=== PATIENT | female | born 1950 | race Caucasian/White ===

== ENCOUNTER → 2017-03-18 | Outpatient (CLI) | payer OTHER | LOC: FIMAGING 09:07 | PROVIDERS: ATTEND Internal Medicine | DX: Z12.31 Encounter for screening mammogram for malignant neoplasm of breast (principal); Z80.3 Family history of malignant neoplasm of breast | CPT/HCPCS: G0202 ==

== ENCOUNTER 2017-03-30 22:16 | Emergency (ER) | payer OTHER ==
[2017-03-30 22:22] VITALS: BP 195/102; PULSE 55; RESP 20; TEMP 97.5; O2SAT 96
--- NOTE | 2017-03-30 22:34 | EDPHY ---
H & P Stated Complaint: varicose veins check up on left - warm leg Time Seen by Provider: 03/30/17 22:27 HPI/ROS: Chief Complaint: Left leg pain HPI: 66-year-old woman with a history of varicose veins noticed this evening that 1 of the veins behind her left calf was firm and tender this evening. She also states that it appeared a little bit red. She is concerned about the possibility of blood clot. She has 2 nephews who had DVTs and PEs in the past. She denies any leg swelling. No shortness of breath. No periods of immobility. No traumatic injuries. She has been tested for blood clotting disorders and has, negative in the past. No fevers or chills. No cough. ROS: 10 point Review of Systems is negative except as noted in the HPI. Social History: No smoking Family History: non-contributory Physical Exam: Gen: Awake, Alert, No Distress HEENT: Nose: no rhinorrhea Eyes: PERRLA, EOMI Mouth: Moist mucosa Neck: Supple, no JVD Ext: no edema, she has a firm and tender varicose vein behind the left calf. There is no erythema. Is not warm to the touch. She has no deep calf pain or swelling. Capillary refills less than 2 seconds. She has 2+ DP pulses. Skin: no rash Neuro: CN II-XII intact, Sensation grossly intact, Strength 5/5 in bilateral upper and lower extremities - Personal History Current Tetanus Diphtheria and Acellular Pertussis (TDAP): Yes - Medical/Surgical History Hx Asthma: No Hx Chronic Respiratory Disease: No Hx Diabetes: No Hx Cardiac Disease: No Hx Renal Disease: No Hx Cirrhosis: No Hx Alcoholism: No Hx HIV/AIDS: No Hx Splenectomy or Spleen Trauma: No - Social History Smoking Status: Never smoked Constitutional: Initial Vital Signs Temperature (C) 36.4 C 03/30/17 22:18 Heart Rate 55 L 03/30/17 22:18 Respiratory Rate 20 03/30/17 22:18 Blood Pressure 195/102 H 03/30/17 22:18 O2 Sat (%) 96 03/30/17 22:18 Allergies/Adverse Reactions: No Known Allergies Allergy (Unverified 03/30/17 22:18) Medical Decision Making - Diagnostics Imaging Results: Duplex ultrasound shows no DVT. There is a clotted varicosity but no clotted vasculature of on the deep tissues. This is per Dr. Carvajal. Imaging: Discussed imaging studies w/ teacher physically impaired Radiologist ED Course/Re-evaluation: Patient has a superficial varicose vein thrombus. No deep vein involvement. I have advised warm compresses, follow up with primary care physician. Departure - Departure Disposition: Home, Routine, Self-Care Clinical Impression: Varicose vein of leg Condition: Good Instructions: Varicose Veins (ED) Additional Instructions: You may apply warm compresses for 15 minutes of every hour every 3-4 hours while awake. Follow up with primary care physician in 3-4 days if symptoms are not improving. Return to the emergency department for increasing redness, warmth, fevers, chills, or any other concerns. Referrals: Lyudmila Cabrera MD [Primary Care Provider] - As per Instructions
== END 2017-03-30 23:37 | disposition home or self-care (01) ==
DX: I83.92 Asymptomatic varicose veins of left lower extremity (principal)

== ENCOUNTER 2017-04-22 20:50 | Inpatient (IN) | payer OTHER ==
[2017-04-22 22:28] LABS: % IMMATURE GRANULYOCYTES 0.3 % (0.0-1.1); ABSOLUTE IMMATURE GRANULOCYTES 0.03 10^3/uL (0.00-0.10); ADD DIFF? NO; ADD MORPH? NO; ADD SCAN? NO; ATYPICAL LYMPHOCYTE FLAG 0 (0-99); FRAGMENT RBC FLAG 0 (0-99); HEMATOCRIT 37.4 % (38.0-47.0); HEMOGLOBIN 12.5 g/dL (12.6-16.3); LEFT SHIFT FLG 0 (0-99); LIPEMIA HEMOLYSIS FLAG 80 (0-99); MEAN CELL HEMOGLOBIN 26.6 pg (27.9-34.1); MEAN CELL HEMOGLOBIN CONCENTR. 33.4 g/dL (32.4-36.7); MEAN CELL VOLUME 79.6 fL (81.5-99.8); MEAN PLATELET VOLUME 10.7 fL (8.7-11.7); PLATELET CLUMPS FLAG 0 (0-99); PLATELET COUNT 165 10^3/uL (150-400); RED CELL DISTRIBUTION WIDTH 13.9 % (11.5-15.2)
--- NOTE | 2017-04-22 22:28 | CPEKG ---
Heart Rate: 92 RR Interval: 652 P-R Interval: 184 QRSD Interval: 94 QT Interval: 372 QTC Interval: 461 P Adamant: 51 QRS Adamant: -6 T Wave Adamant: -12 EKG Severity - BORDERLINE ECG - EKG Impression: SINUS RHYTHM EKG Impression: LOW VOLTAGE THROUGHOUT EKG Impression: BORDERLINE T ABNORMALITIES, DIFFUSE LEADS Electronically Signed By: Herlinda Gibbs 22-Apr-2017 23:10:09
[2017-04-22 22:34] LABS: INR 1.13 (0.83-1.16); PROTIME(PATIENT) 14.4 SEC (12.0-15.0)
[2017-04-22 22:35] LABS: APTT 28.5 SEC (23.0-38.0)
[2017-04-22 22:39] LABS: ANION GAP 13 mEq/L (8-16); CARBON DIOXIDE 21 mEq/l (22-31); CHLORIDE 104 mEq/L (97-110); CREATININE 0.8 mg/dL (0.6-1.0); GLOMERULAR FILTRATION RATE > 60; GLUCOSE 119 mg/dL (70-100); POTASSIUM 3.9 mEq/L (3.5-5.2); SODIUM 138 mEq/L (134-144)
--- NOTE | 2017-04-22 22:49 | EDPHY ---
H & P <Bry Keating Celia - Last Filed: 04/22/17 23:52> Smoking Status: Never smoked <Herlinda Gibbs - Last Filed: 04/23/17 09:52> Time Seen by Provider: 04/22/17 21:25 HPI/ROS: HPI Short of breath. Chest tightness. 66-year-old female by private vehicle with her . This patient reports that she has had upper respiratory infection type symptoms for the last 3 weeks including nasal congestion and cough which she says has been nonproductive. She reports that the symptoms have gotten better. She reports that she flew down to [place] to visit her sister. She returned home at about noon today. When she got up this morning. She felt very fatigued and noticed that she felt short of breath as well. She denies any associated cough or significant nasal congestion at this time. She reports that when she got to the airport was walking to the gauge she had to sit down 5 times to catch her breath. Again no cough and no significant nasal congestion. She describes having tightness and pressure in the middle of her chest but denies chest pain. ROS: Constitutional: No fever, no chills. No weakness. Eyes: No discharge. No changes in vision. ENT: No sore throat. As above. Respiratory: As above. Cardiac: No chest pain, as above, no palpitations. Gastrointestinal: No abdominal pain, no vomiting, no diarrhea. Genitourinary: No hematuria. No dysuria or increased frequency with urination. Musculoskeletal: No back pain. No neck pain. No myalgias or arthralgias. Skin: No rashes. Neurological: No headache. No focal weakness or altered sensation. Past medical history: Surgeries on both feet. Treated for superficial thrombophlebitis recently. Social history: Nonsmoker. No alcohol. Here with her . Physical Exam: General Appearance: Alert, no distress. This patient is responding to questions appropriately and in full sentences. This patient appears well- hydrated and well-nourished. Eyes: Pupils equal and round no pallor or injection. No lid edema, erythema or injection. ENT, Mouth: Mucous membranes are moist. The pharyngeal tissues are unremarkable. No edema or swelling. No asymmetry suggestive of abscess. No erythema or exudates. Respiratory: There are no retractions, lungs are clear to auscultation with good air movement bilaterally. Cardiovascular: Regular rate and rhythm. No murmur. Gastrointestinal: Abdomen is soft and nontender, no masses, bowel sounds normal. No focal tenderness at McBurney's point. No Marin sign. Neurological: Motor sensory function is grossly intact. Cranial nerves are normal. Gait is normal. Skin: Warm and dry, no rashes. Musculoskeletal: Neck is supple and nontender. Extremities are symmetrical. No lower extremity edema. All joints range without pain or impingement. Psychiatric: No agitation. No depression. Database: EKG: EKG time is 10:27 p.m.; EKG shows a narrow complex normal sinus rhythm with a ventricular rate of 92. Low voltage is noted is throughout. The TN, QRS, QT intervals are within normal limits. Borderline T-wave abnormalities diffuse leads. There are no ST-T wave changes indicative of ischemic or injury pattern. No evidence of right heart strain. Interpreted by me. Imaging: Chest x-ray PA and lateral; the cardiac mediastinal silhouette is unremarkable. No evidence of infiltrate or pneumothorax. No acute cardiopulmonary disease process noted. Interpreted by me. Procedures: Emergency department course: IV placed. She was placed on a monitor. Vital signs reviewed. Room air pulse oximetry 89%. She was placed on 2 L of nasal cannula oxygen with pulse oximetries coming up to the mid 90s. Mildly tachycardic in triage. 10:45 p.m., patient re-evaluated, cold roll catcher shows a narrow complex sinus rhythm with ventricular rate of 86. Discussed elevated D-dimer and the significance of this and need for CT angiogram. Patient consents to this study. 10:55 p.m., patient awaiting CT angiogram of chest. Vital signs reviewed and are stable. Care turned over to Dr. Bry Keating at this time. Differential Diagnosis: The differential diagnosis on this patient includes but is not limited to pulmonary embolism, reactive airway disease, congestive heart failure, pericardial effusion, acute coronary syndrome. This represents a partial list of diagnoses considered. These considerations are based on history, physical exam, past history, reassessment and diagnostic testing. (Herlinda Gibbs ) Constitutional: Initial Vital Signs Temperature (C) 36.6 C 04/22/17 20:54 Heart Rate 104 H 04/22/17 20:54 Respiratory Rate 16 04/22/17 20:54 Blood Pressure 106/75 04/22/17 20:54 O2 Sat (%) 93 04/22/17 20:54 O2 Delivery Mode Nasal Cannula O2 (L/minute) 2 Allergies/Adverse Reactions: No Known Allergies Allergy (Verified 04/22/17 20:57) Home Medications: Medication Instructions Recorded C/E/Zn/Cu/OM3/DHA/EPA/LUT/ZEAX 1 each PO DAILY 04/23/17 [Preservision Areds 2 Softgel] Cholecalciferol Vit D3 [Vitamin D3 1,000 units PO DAILY 04/23/17 (*)] Ferrous Sulfate [Ferrous Sulf 325 325 mg PO DAILY 04/23/17 MG (*)] Herbals/Supplements -Info Only 1 ea PO DAILY 04/23/17 Multivitamins [Multivitamin (*)] 1 each PO DAILY 04/23/17 [place]-3 Fatty Acids [Fish Oil 1000 1,000 mg PO DAILY 04/23/17 mg (*)] Medical Decision Making - Diagnostics Imaging: Discussed imaging studies w/ call center support representative Radiologist <Bry Keating - Last Filed: 04/22/17 23:52> <Herlinda Gibbs - Last Filed: 04/23/17 09:52> - Diagnostics Imaging Results: Imaging Impressions Chest X-Ray 04/22/17 21:09 Impression: 1. Lungs are clear. 2. Osteolysis of the distal right clavicle, likely posttraumatic. 3. Mild wedging of multiple mid thoracic vertebrae may represent subtle age- indeterminate compression fractures. Chest/Thorax CTA 04/22/17 22:50 Impression: 1. Extensive pulmonary emboli involving most major branches of the pulmonary arterial tree, right greater than left. 2. Right ventricular enlargement, bowing of the intraventricular septum and reflux of contrast into the hepatic veins suggest right heart strain. 3. Probable developing pulmonary infarct in the right upper lobe. Dr. Gayle discussed these findings by telephone with Bry Keating MD at 23:27. Other Provider: 2300 care assumed by me from Dr. Gibbs pending CT scan of the chest. This is a 66-year-old woman actually I saw on the 1st of this month who had a thrombosed varicose vein but normal ultrasound of her deep veins of her left leg. She is presenting with worsening leg swelling and shortness of breath. CT scan now shows bilateral PEs with some mild prominence of the right ventricle consistent with right heart strain. I have discussed with Dr. Arellano, hospitalist. He will admit to his service for further care. He is in agreement with starting the patient on Lovenox and admitting the PCU. (Bry Keating) - Data Points Laboratory Results: Laboratory Results 04/22/17 22:16 04/22/17 22:16 04/22/17 04/22/17 04/22/17 22:16 22:16 22:16 WBC 10.34 10^3/uL H 10^3/uL (3.80-9.50) RBC 4.70 10^6/uL 10^6/uL (4.18-5.33) Hgb 12.5 g/dL L g/dL (12.6-16.3) Hct 37.4 % L % (38.0-47.0) MCV 79.6 fL L fL (81.5-99.8) MCH 26.6 pg L pg (27.9-34.1) MCHC 33.4 g/dL g/dL (32.4-36.7) RDW 13.9 % % (11.5-15.2) Plt Count 165 10^3/uL 10^3/uL (150-400) MPV 10.7 fL fL (8.7-11.7) Neut % (Auto) 78.4 % H % (39.3-74.2) Lymph % (Auto) 14.5 % L % (15.0-45.0) [place] % (Auto) 5.7 % % (4.5-13.0) Eos % (Auto) 0.8 % % (0.6-7.6) Baso % (Auto) 0.3 % % (0.3-1.7) Nucleat RBC Rel Count 0.0 % % (0.0-0.2) Absolute Neuts (auto) 8.11 10^3/uL H 10^3/uL (1.70-6.50) Absolute Lymphs (auto) 1.50 10^3/uL 10^3/uL (1.00-3.00) Absolute Monos (auto) 0.59 10^3/uL 10^3/uL (0.30-0.80) Absolute Eos (auto) 0.08 10^3/uL 10^3/uL (0.03-0.40) Absolute Basos (auto) 0.03 10^3/uL 10^3/uL (0.02-0.10) Absolute Nucleated RBC 0.00 10^3/uL 10^3/uL (0-0.01) Immature Gran % 0.3 % % (0.0-1.1) Immature Gran # 0.03 10^3/uL 10^3/uL (0.00-0.10) PT 14.4 SEC SEC (12.0-15.0) INR 1.13 (0.83-1.16) APTT 28.5 SEC SEC (23.0-38.0) D-Dimer 9.30 ug/mLFEU H ug/mLFEU (0.00-0.50) Sodium 138 mEq/L mEq/L (134-144) Potassium 3.9 mEq/L mEq/L (3.5-5.2) Chloride 104 mEq/L mEq/L (97-110) Carbon Dioxide 21 mEq/l L mEq/l (22-31) Anion Gap 13 mEq/L mEq/L (8-16) BUN 20 mg/dL mg/dL (7-23) Creatinine 0.8 mg/dL mg/dL (0.6-1.0) Estimated GFR > 60 Glucose 119 mg/dL H mg/dL (70-100) Calcium 9.0 mg/dL mg/dL (8.5-10.4) Troponin I 0.258 ng/mL H ng/mL (0.000-0.034) NT-Pro-B Natriuret Pep 5160 pg/mL H pg/mL (0-125) Medications Given: Rivaroxaban (Xarelto) 15 mg PO BIDMEAL ADELINE Stop: 10/20/17 07:59 Last Admin: 04/23/17 07:41 Dose: 15 mg Discontinued Medications Enoxaparin Sodium (Lovenox) 70 mg SC EDNOW ONE Stop: 04/22/17 23:55 Last Admin: 04/23/17 00:15 Dose: 70 mg Departure <Bry eKating - Last Filed: 04/22/17 23:52> <Herlinda Gibbs - Last Filed: 04/23/17 09:52> - Departure Disposition: [facility] Inpatient Acute Clinical Impression: Dyspnea, Hypoxia, Pulmonary embolism Condition: Fair
[2017-04-22 22:51] LABS: TROPONIN I 0.258 ng/mL (0.000-0.034)
[2017-04-22] MEDS ORDERED: IOPAMIDOL (ISOVUE 370) 100 ML BTL IV ONE (22:54)
[2017-04-22] MEDS ORDERED: ONDANSETRON DISINTEGRATING 4 MG TAB PO PRN (23:51)
[2017-04-22] MEDS ORDERED: ONDANSETRON 4 MG/2 ML VIAL IVP PRN (23:51)
[2017-04-22] MEDS ORDERED: ACETAMINOPHEN 325 MG TAB PO PRN (23:51)
[2017-04-22] MEDS ORDERED: ENOXAPARIN 80 MG/0.8 ML SYR SC ONE (23:54)
--- NOTE | 2017-04-23 02:24 | PDGENHP ---
History and Physical - Chief Complaint Fatigue, shortness of breath - History of Present Illness 66 yo F w/ recent dx of superficial thrombosis and extensive family hx of VTE presents with one day of fatigue and SOB. Patient states she has felt fatigued with a mild cough since the beginning of March. Then, on the day prior to admission, she began to experience severe fatigue and dyspnea on exertion. This started prior to her short flight from [place] back to [place]. It was these symptoms that prompted a visit to the ED. Of note, she was seen in ED recently for R leg pain and swelling as was diagnosed with superficial thromboses in the R popliteal fossa. History Information - Allergies/Home Medication List Allergies/Adverse Reactions: No Known Allergies Allergy (Verified 04/22/17 20:57) Home Medications: NK [No Known Home Meds] 04/22/17 [Last Taken Unknown] I have personally reviewed and updated: family history, medical history - Past Medical History Additional medical history: Superficial thromboses - Family History Additional family history: Hx of VTE in multiple family members. - Social History Smoking Status: Never smoked Review of Systems Review of Systems: ROS: 10pt was reviewed & negative except for what was stated in HPI & below Physical Exam Physical Exam: Temp Pulse Resp BP Pulse Ox 36.6 C 92 17 148/85 H 93 04/23/17 00:55 04/23/17 00:55 04/23/17 00:55 04/23/17 00:55 04/23/17 00:55 O2 (L/minute) 2 Constitutional: no apparent distress, appears nourished Eyes: PERRL, EOMI Ears, Nose, Mouth, Throat: moist mucous membranes, no oral mucosal ulcers Cardiovascular: regular rate and rhythym, no murmur, rub, or gallop Respiratory: no respiratory distress, no rales or rhonchi Gastrointestinal: normoactive bowel sounds, soft, non-tender abdomen Genitourinary: no bladder fullness, no bladder tenderness Skin: warm, normal color Musculoskeletal: full muscle strength, no muscle tenderness, other (Palpable cord in R popliteal fossa) Neurologic: AAOx3, sensation intact bilaterally Psychiatric: interacting appropriately, not anxious Lab Data & Imaging Review 04/22/17 22:16 04/22/17 22:16 WBC 10.34 10^3/uL (3.80-9.50) H 04/22/17 22:16 RBC 4.70 10^6/uL (4.18-5.33) 04/22/17 22:16 Hgb 12.5 g/dL (12.6-16.3) L 04/22/17 22:16 Hct 37.4 % (38.0-47.0) L 04/22/17 22:16 MCV 79.6 fL (81.5-99.8) L 04/22/17 22:16 MCH 26.6 pg (27.9-34.1) L 04/22/17 22:16 MCHC 33.4 g/dL (32.4-36.7) 04/22/17 22:16 RDW 13.9 % (11.5-15.2) 04/22/17 22:16 Plt Count 165 10^3/uL (150-400) 04/22/17 22:16 MPV 10.7 fL (8.7-11.7) 04/22/17 22:16 Neut % (Auto) 78.4 % (39.3-74.2) H 04/22/17 22:16 Lymph % (Auto) 14.5 % (15.0-45.0) L 04/22/17 22:16 [place] % (Auto) 5.7 % (4.5-13.0) 04/22/17 22:16 Eos % (Auto) 0.8 % (0.6-7.6) 04/22/17 22:16 Baso % (Auto) 0.3 % (0.3-1.7) 04/22/17 22:16 Nucleat RBC Rel Count 0.0 % (0.0-0.2) 04/22/17 22:16 Absolute Neuts (auto) 8.11 10^3/uL (1.70-6.50) H 04/22/17 22:16 Absolute Lymphs (auto) 1.50 10^3/uL (1.00-3.00) 04/22/17 22:16 Absolute Monos (auto) 0.59 10^3/uL (0.30-0.80) 04/22/17 22:16 Absolute Eos (auto) 0.08 10^3/uL (0.03-0.40) 04/22/17 22:16 Absolute Basos (auto) 0.03 10^3/uL (0.02-0.10) 04/22/17 22:16 Absolute Nucleated RBC 0.00 10^3/uL (0-0.01) 04/22/17 22:16 Immature Gran % 0.3 % (0.0-1.1) 04/22/17 22:16 Immature Gran # 0.03 10^3/uL (0.00-0.10) 04/22/17 22:16 PT 14.4 SEC (12.0-15.0) 04/22/17 22:16 INR 1.13 (0.83-1.16) 04/22/17 22:16 APTT 28.5 SEC (23.0-38.0) 04/22/17 22:16 D-Dimer 9.30 ug/mLFEU (0.00-0.50) H 04/22/17 22:16 Sodium 138 mEq/L (134-144) 04/22/17 22:16 Potassium 3.9 mEq/L (3.5-5.2) 04/22/17 22:16 Chloride 104 mEq/L (97-110) 04/22/17 22:16 Carbon Dioxide 21 mEq/l (22-31) L 04/22/17 22:16 Anion Gap 13 mEq/L (8-16) 04/22/17 22:16 BUN 20 mg/dL (7-23) 04/22/17 22:16 Creatinine 0.8 mg/dL (0.6-1.0) 04/22/17 22:16 Estimated GFR > 60 04/22/17 22:16 Glucose 119 mg/dL (70-100) H 04/22/17 22:16 Calcium 9.0 mg/dL (8.5-10.4) 04/22/17 22:16 Troponin I 0.258 ng/mL (0.000-0.034) H 04/22/17 22:16 NT-Pro-B Natriuret Pep 5160 pg/mL (0-125) H 04/22/17 22:16 Imaging Review: CTPE notable for extensive, bilateral pulmonary emboli and evidence of RV strain. Visualized and Interpreted EKG results: Yes EKG Interpretation: Positive for: normal sinsus rhythm Assessment & Plan Assessment: 66 yo F w/ recent superficial thromboses and extensive family hx of VTE presents with bilateral pulmonary emboli. Plan: 1. Submassive pulmonary embolism - Involving most major branches of the pulmonary arterial tree. Unclear if this is related to recently diagnosed superficial thromboses. Patient does note a significant family hx of VTE, which is likely the more important contributing factor. Interestingly, patient had work-up earlier this year that was negative (Antithrombin, prothrombin, Protein C/S, APLS, coags). Troponin and BNP elevated likely reflective of RV strain. Hemodynamically stable. PESI of 66 denoting low risk. - Admit to PCU for observation, monitor on telemetry - TTE to evaluate RV function - S/p Lovenox in ED, will start Xarelto 15 mg BID x21 days, 20 mg qD thereafter (Xarelto and Eliquis both preferred by patient's insurance but patient would prefer once daily dosing) - Discussed w/ patient that she will require at least 3-6 months of AC, but would likely benefit form lifelong noting severity of clotting event and family hx 2. Elevated troponin - Likely reflective of RV strain. Trend enzymes and TTE for further evaluation. Diet - Regular Code - Full Ppx - Xarelto Dispo - Admit to observation status
[2017-04-23 05:12] LABS: % IMMATURE GRANULYOCYTES 0.1 % (0.0-1.1); ABSOLUTE IMMATURE GRANULOCYTES 0.01 10^3/uL (0.00-0.10); ADD DIFF? NO; ADD MORPH? NO; ADD SCAN? NO; ATYPICAL LYMPHOCYTE FLAG 10 (0-99); FRAGMENT RBC FLAG 0 (0-99); HEMATOCRIT 36.7 % (38.0-47.0); HEMOGLOBIN 11.7 g/dL (12.6-16.3); LEFT SHIFT FLG 0 (0-99); LIPEMIA HEMOLYSIS FLAG 80 (0-99); MEAN CELL HEMOGLOBIN 25.8 pg (27.9-34.1); MEAN CELL HEMOGLOBIN CONCENTR. 31.9 g/dL (32.4-36.7); MEAN CELL VOLUME 80.8 fL (81.5-99.8); MEAN PLATELET VOLUME 11.1 fL (8.7-11.7); PLATELET CLUMPS FLAG 0 (0-99); PLATELET COUNT 152 10^3/uL (150-400); RED BLOOD CELL COUNT 4.54 10^6/uL (4.18-5.33); RED CELL DISTRIBUTION WIDTH 13.9 % (11.5-15.2)
[2017-04-23 05:22] LABS: ANION GAP 17 mEq/L (8-16); CALCIUM 8.9 mg/dL (8.5-10.4); CARBON DIOXIDE 24 mEq/l (22-31); CHLORIDE 103 mEq/L (97-110); CREATININE 0.9 mg/dL (0.6-1.0); GLOMERULAR FILTRATION RATE > 60; GLUCOSE 103 mg/dL (70-100); POTASSIUM 4.1 mEq/L (3.5-5.2); SODIUM 144 mEq/L (134-144)
[2017-04-23 05:29] LABS: TROPONIN I 0.172 ng/mL (0.000-0.034)
[2017-04-23] MEDS: RIVAROXABAN 15 MG TAB PO SCH ×2 (07:41→17:07)
--- NOTE | 2017-04-23 14:12 | ASMTCMCOM ---
CM Note CM Note Notes: Chart reviewed. Met with patient and her . She was admitted through the ER with PE. She lives Independent with her no needs identified at this time. CM available should needs arise. Date Signed: 04/23/2017 02:11 PM Electronically Signed By:Jazz Martel RN
--- NOTE | 2017-04-23 14:40 | ECHO ---
[email or web address] [address] Main: [phone] Fax: [email or web address] Echocardiogram Name: MAGALYS VIGIL MR#: [id number] Study Date: 04/23/2017 Study Time: 08:07 AM Date of : 1950 Age: 66 year(s) Height: 167.6 cm (66 in.) Weight: 68.04 kg (150 lb.) BSA: 1.77 m2 Gender: Female Examination: Echo Indication: New onset PE, Eval for right heart strain Image Quality: Contrast: Requested by: Bill Gonsalez BP: 135 mmHg/77 mmHg Heart Rate: Rhythm: Normal sinus rhythm Indication: New onset PE, Eval for right heart strain Procedure Staff Compliance Advisor: Owen Osuna Reading Physician: Alex Law Requesting Provider: Conclusions: Normal global systolic LV function. EF is 68 %. Mildly to moderately dilated right ventricle. There is abnormal septal motion with diastolic flattening suggestive of RV volume/pressure overload. . There is mild to moderate RV hypokinesis. Trivial mitral valve regurgitation. Mild tricuspid regurgitation is present. Measurements: Chambers Valvular Assessment AV/MV Valvular Assessment TV/PV Normal Normal Normal Name Value Range Name Value Range Name Value Range Ao Rochelle (MM): 3.7 cm (2.2 cm-3.7 AV Vmax: 0.96 m/s (1 m/s-1.7 TR Vmax: 2.99 mm/s ( - ) cm) m/s) TR PGmax: 36 mmHg ( - ) IVSd (2D): 0.8 cm (0.6 cm-1.1 AV maxP mmHg ( - ) syst. PAP: 46 mmHg ( - ) cm) LVOT Vmax: 0.82 m/s (0.7 m/s-1.1 LVDd (2D): 4.1 cm (3.9 cm-5.3 m/s) cm) MV E Vmax: 0.80 m/s ( - ) LVDs (2D): 2.6 cm (2.1 cm-4 MV A Vmax: 0.36 m/s ( - ) cm) MV E/A: 2.22 ( - ) LVPWd (2D): 0.8 cm ( - ) LVEF (2D): 68 (>=54 %) RVDd(2D): 4.9 cm (1.9 cm-3.8 cmmm) Continued Measurements: Chambers Valvular Assessment AV/MV Valvular Assessment TV/PV Name Value Name Value Name Value Patient: MAGALYS VIGIL Study Date: 04/23/2017 Page 1 of 2 08:07 AM LADs Lon.1 cm MV E/E' Septal: 23.60 CVP (est.): 10 mmHg LA Area: 11.0 cm2 MV E/E' Lateral: 11.00 LA Volume: 33 ml LA Volume Index: 18.6 ml/m2 Findings: Left Ventricle: Normal size left ventricle. No LV hypertrophy. Normal global systolic LV function. EF is 68 %. No regional wall motion abnormality. Right Ventricle: Mildly to moderately dilated right ventricle. There is abnormal septal motion with diastolic flattening suggestive of RV volume/pressure overload. . There is mild to moderate RV hypokinesis. Left Atrium: The left atrium is normal in size. Right Atrium: The right atrium is normal in size. Mitral Valve: The mitral valve is normal in appearance. Trivial mitral valve regurgitation. Aortic Valve: The aortic valve is normal in appearance and function. Trivial aortic valve regurgitation. No aortic valve stenosis is present. Tricuspid Valve: The tricuspid valve appears normal. Mild tricuspid regurgitation is present. The pulmonary artery pressure is mildly increased. Pulmonic Valve: The pulmonic valve is normal in appearance and function. Aorta: The aorta is normal. Pericardium: No pericardial effusion. (No Signature Object) Patient: MAGALYS VIGIL Study Date: 04/23/2017 Page 2 of 2 08:07 AM [id number]
[2017-04-23] MEDS ORDERED: FUROSEMIDE 20 MG TAB PO ONE (16:10)
--- NOTE | 2017-04-23 16:15 | HOSPPROG ---
Hospitalist Progress Note Assessment/Plan: medically complex new patient encounter 66 yo Female with fm hx of hypercoagulable state admitted for submassive bilateral P.E. with evidence of right sided strain. She is using O2 when she sleeps. No CP or SOB at this time. No leg Edema. An intermittent cough is noticeable while im seeing her. #Acute P.E. #Right sided heart strain #intermittent Hypoxemia and new cough #elevated troponin due to right sided heart strain Plan: -Continue with Xarelto -TTE is pending -Will provide Lasix x 1 -repeat Trop -Labs in a.m. -Check US of LE to determine if clot present and clot burden to determine need for IVC filter. -Ful Code Subjective: Still with intermittent O2 use. No CP. NO SOB. NO leg Edema. Objective: Vital Signs Temp Pulse Resp BP Pulse Ox 36.9 C 85 8 L 117/69 93 04/23/17 15:33 04/23/17 15:33 04/23/17 15:33 04/23/17 15:33 04/23/17 15:33 Laboratory Results 04/23/17 04:14 04/23/17 04:14 04/22/17 04/23/17 04/24/17 05:59 05:59 05:59 Intake Total 400 250 Balance 400 250 PT 14.4 SEC (12.0-15.0) 04/22/17 22:16 INR 1.13 (0.83-1.16) 04/22/17 22:16 - Physical Exam Constitutional: no apparent distress, appears nourished, not in pain Eyes: PERRL, EOMI Ears, Nose, Mouth, Throat: moist mucous membranes, hearing normal Cardiovascular: regular rate and rhythym, No edema Respiratory: reduced air movement, rhonchi Gastrointestinal: normoactive bowel sounds, soft, non-tender abdomen Skin: warm Neurologic: AAOx3 Psychiatric: interacting appropriately, not anxious, not encephalopathic ICD10 Worksheet Patient Problems: Problems Problem Status Onset Dyspnea Acute Hypoxia Acute Pulmonary embolism Acute
--- NOTE | 2017-04-23 17:52 | PDMN ---
Medical Necessity Medical necessity: Pt meets Inpt criteria per MD as of 04/23/17; est. LOS >2 MN for ongoing eval/mgmt of submassive bilateral PE with evidence of R sided heart strain with intermittent hypoxemia and new cough, elevated troponin per MD progress note.
[2017-04-24 05:18] LABS: % IMMATURE GRANULYOCYTES 0.2 % (0.0-1.1); ABSOLUTE IMMATURE GRANULOCYTES 0.01 10^3/uL (0.00-0.10); ADD DIFF? NO; ATYPICAL LYMPHOCYTE FLAG 10 (0-99); FRAGMENT RBC FLAG 0 (0-99); HEMATOCRIT 36.8 % (38.0-47.0); HEMOGLOBIN 11.9 g/dL (12.6-16.3); LEFT SHIFT FLG 0 (0-99); MEAN CELL HEMOGLOBIN CONCENTR. 32.3 g/dL (32.4-36.7); MEAN CELL VOLUME 80.3 fL (81.5-99.8); MEAN PLATELET VOLUME 10.9 fL (8.7-11.7); PLATELET COUNT 163 10^3/uL (150-400); RED BLOOD CELL COUNT 4.58 10^6/uL (4.18-5.33); RED CELL DISTRIBUTION WIDTH 13.9 % (11.5-15.2)
[2017-04-24 05:19] LABS: ADD MORPH? NO; ADD SCAN? NO; LIPEMIA HEMOLYSIS FLAG 80 (0-99); PLATELET CLUMPS FLAG 10 (0-99)
[2017-04-24 05:28] LABS: ANION GAP 10 mEq/L (8-16); CALCIUM 9.1 mg/dL (8.5-10.4); CARBON DIOXIDE 26 mEq/l (22-31); CHLORIDE 106 mEq/L (97-110); CREATININE 0.9 mg/dL (0.6-1.0); GLOMERULAR FILTRATION RATE > 60; GLUCOSE 87 mg/dL (70-100); POTASSIUM 4.3 mEq/L (3.5-5.2); SODIUM 142 mEq/L (134-144)
[2017-04-24 05:41] LABS: TROPONIN I 0.064 ng/mL (0.000-0.034)
[2017-04-24 07:29] VITALS: PULSE 92
[2017-04-24] MEDS: RIVAROXABAN 15 MG TAB PO SCH (08:05)
[2017-04-24] MEDS ORDERED: MULTIVITAMINS 1 EACH TAB PO SCH (09:00)
[2017-04-24] MEDS ORDERED: FERROUS SULFATE 325 MG TAB PO SCH (09:00)
[2017-04-24] MEDS ORDERED: OMEGA-3 FATTY ACIDS 1,000 MG CAP PO SCH (09:00)
[2017-04-24] MEDS ORDERED: CHOLECALCIFEROL VIT D3 1,000 UNITS TAB PO SCH (09:00)
[2017-04-24] MEDS ORDERED: PRESERVISION AREDS2 FORMULA EYE VIT 1 EACH PO SCH (09:00)
--- NOTE | 2017-04-24 10:35 | PDHOMEO2F ---
Home Oxygen Face to Face Home Orders: I certify that a physician or a nurse practitioner or physician's cleaner assistant has had a pfxt-pi-exqn encounter with this patient on the date of this order due to the diagnosis listed, which relates to the primary reason the patient requires home oxygen. Alternative treatments have been tried, or considered, and deemed ineffective. It is anticipated that supplemental oxygen will result in improvement with treatment. Home oxygen qualifying diagnosis: nocturnal hypoxemia SpO2 on room air (%): 83 Frequency of home oxygen needed: during sleep Home oxygen liters per minute: 2 Home oxygen delivery device: nasal cannula Concentrator: Yes E-tanks for mobility and back up: No I certify that, based on these findings, the home oxygen is medically necessary for this patient for the following length of time. Length of time home oxygen needed: 1 month
--- NOTE | 2017-04-24 10:45 | PDDCSUM ---
Discharge Summary Discharge Summary: HPI and Hospital Course: 66 yo Female with fm hx of hypercoagulable state admitted for submassive bilateral P.E. with evidence of right sided strain per CTA and TTE. She is using O2 when she sleeps and has been set up for home O2. No CP or SOB at this time. No leg Edema. Overall she is doing better. Trop was initially elevated but has trended down. EKG did not show signs of acute ischemia. US of LE did not showed superficial clot but no DVT. No indications for filter. Will continue on Xarelto. Would treat for 6 months pending hypercoagulable testing.. She reports an extensive FM hx of hypercoagulable state. Her testing has been negative, but would consider repeating testing. F/U with PCP in 1 week All questions and concerns answered DDX: #Acute P.E. #Right sided heart strain #intermittent Hypoxemia and nocturnal hypoxemia. O2 has been set up for hoe. #elevated troponin due to right sided heart strain, resolving. Exam: VSS on RA NAD AAOX3 NO JVD RRR CTA B S/NT/ND NO EDEMA D/C MEDS: PER MED REC: Xarelto 15mg BID for total of 21 days, then change to 20mg daily. total care time spent on discharge is 38 minutes
[2017-04-24 10:47] VITALS: BP 119/74; RESP 15; TEMP 98.2; O2SAT 92
--- NOTE | 2017-04-24 11:21 | PDHOMEO2F ---
Home Oxygen Face to Face Home Orders: I certify that a physician or a nurse practitioner or physician's educational assistant teacher has had a teav-mx-ratz encounter with this patient on the date of this order due to the diagnosis listed, which relates to the primary reason the patient requires home oxygen. Alternative treatments have been tried, or considered, and deemed ineffective. It is anticipated that supplemental oxygen will result in improvement with treatment. Home oxygen qualifying diagnosis: hypoxeia SpO2 on room air (%): 83 Frequency of home oxygen needed: continuous Home oxygen liters per minute: 2 Home oxygen delivery device: nasal cannula Concentrator: Yes E-tanks for mobility and back up: No I certify that, based on these findings, the home oxygen is medically necessary for this patient for the following length of time. Length of time home oxygen needed: 1 month
--- NOTE | 2017-04-24 12:51 | ASDISCHSUM ---
Discharge Information Plan Status:Home with No Needs Medically Cleared to Leave:04/24/2017 Discharge Date:04/24/2017 12:05 PM CM D/C Disposition:Home, Routine, Self-Care ADT D/C Disposition:Home, Routine, Self-Care Projected Discharge Date:04/24/2017 12:00 AM Transportation at D/C: Discharge Delay Reason: Follow-Up Date:04/24/2017 12:00 AM Discharge Slot: Final Diagnosis: Placement Information Patient Contact Information Contact Name:CAMMYALEJANDROSuzanne Relationship: Address:[address] [facility] City:[place] Alternate Phone: [facility]/Zip Code:[place] [address] Email: Financial Information Financial Class: Primary Plan Desc:MEDICARE INPATIENT Primary Plan Number:[id number] Secondary Plan Desc:DORA FLORES PPO Secondary Plan Number:[id number] Assessment Information LACE LACE Length of stay for Answers: 1 day current admission Acuity / Level of Care Answers: Was the patient admitted to hospital via the emergency department? Yes: Emergency dept visits in Answers: 1 last 6 months Score: 5 Date Signed: 04/23/2017 01:59 PM Electronically Signed By:Jazz Martel RN [facility] CM Progress Note CM Note CM Note Notes: Chart reviewed. Met with patient and her . She was admitted through the ER with PE. She lives Independent with her no needs identified at this time. CM available should needs arise. Date Signed: 04/23/2017 02:11 PM Electronically Signed By:Jazz Martel RN Intervention Information Intervention Type:*CARBAJAL-Signed Date of Service:04/23/2017 09:38 AM Patient Type:Observation Staff Member:Greta Garza Hours:0.25 Discipline: Severity: Comment:Ligia stated the admitting physician to ld her she would be admitted as an inpatient. I explained she was currently observation, and that since she has a secondary insurance she should be well covered. I left my contact information with her in case she has additional questions.
== END 2017-04-24 12:05 | disposition home or self-care (01) | DRG 176 ==
LOC: F2W 04-23 00:36 → OBSVTOIN 04-23 17:24
PROVIDERS: ADMIT Student in an Organized Health Care Education/Training Program; ATTEND Student in an Organized Health Care Education/Training Program
DX: I26.99 Other pulmonary embolism without acute cor pulmonale (principal); D68.59 Other primary thrombophilia; Z79.01 Long term (current) use of anticoagulants; Z86.718 Personal history of other venous thrombosis and embolism
CPT/HCPCS: G0378; J1650; Q9967

== ENCOUNTER → 2017-05-29 | Outpatient (CLI) | payer OTHER | LOC: FIMAGING 15:51 | PROVIDERS: ATTEND Internal Medicine Hematology & Oncology | DX: R22.31 Localized swelling, mass and lump, right upper limb (principal) ==

== ENCOUNTER → 2017-06-03 | Outpatient (CLI) | payer OTHER | LOC: FIMAGING 14:42 | PROVIDERS: ATTEND Nurse Practitioner | DX: M79.662 Pain in left lower leg (principal); M79.89 Other specified soft tissue disorders; Z86.711 Personal history of pulmonary embolism; Z86.718 Personal history of other venous thrombosis and embolism; Z79.01 Long term (current) use of anticoagulants ==

== ENCOUNTER → 2017-09-16 | Outpatient (CLI) | payer OTHER | LOC: FIMAGING 07:31 | PROVIDERS: ATTEND Radiology Diagnostic Radiology | DX: I83.92 Asymptomatic varicose veins of left lower extremity (principal) ==

== ENCOUNTER 2017-10-06 07:14 | Day surgery (SDC) | payer OTHER ==
[2017-10-06] MEDS ORDERED: GLUCAGON HCL 1 MG VIAL IVP PRN (07:31)
[2017-10-06] MEDS ORDERED: ALTEPLASE 2 MG VIAL IVP PRN (07:31)
[2017-10-06] MEDS ORDERED: NALOXONE HCL 0.4 MG/ML INJ IVP PRN (07:31)
[2017-10-06] MEDS ORDERED: ONDANSETRON 4 MG/2 ML VIAL IVP ONE (07:31)
[2017-10-06] MEDS ORDERED: MIDAZOLAM 2 MG/2 ML VIAL IVP PRN (07:31)
[2017-10-06] MEDS ORDERED: ceFAZolin 2 GM/SWFI 2 GM/20 ML SYR IVP ONE (07:31)
[2017-10-06] MEDS ORDERED: PROTAMINE SULFATE 50 MG/5 ML VIAL IVP PRN (07:31)
[2017-10-06] MEDS ORDERED: HEPARIN 10,000 UNIT/10 ML MDV (1,000 UNIT/ML) IVP PRN (07:31)
[2017-10-06] MEDS ORDERED: FLUMAZENIL 0.5 MG/5 ML MDV IVP PRN (07:31)
[2017-10-06] MEDS ORDERED: MEPERIDINE 25 MG/ML SYR IVP PRN (07:31)
[2017-10-06] MEDS ORDERED: NS 1,000 ML IV ONE (07:31)
[2017-10-06] MEDS ORDERED: fentaNYL 100 MCG/2 ML INJ IVP PRN (07:31)
[2017-10-06] MEDS ORDERED: LIDO/EPI 1% **for epidural** 30 ML SDV ONE (08:14)
[2017-10-06] MEDS ORDERED: SODIUM TETRADECYL SULFATE 3% 2 ML VIAL IV ONE (08:14)
[2017-10-06] MEDS ORDERED: FLUMAZENIL 0.5 MG/5 ML MDV IVP ONE (08:35)
[2017-10-06] MEDS ORDERED: NALOXONE HCL 0.4 MG/ML INJ ONE (08:36)
[2017-10-06] MEDS ORDERED: MIDAZOLAM 2 MG/2 ML VIAL ONE ×2 (08:36→09:19)
[2017-10-06] MEDS ORDERED: fentaNYL 100 MCG/2 ML INJ ONE ×2 (08:36→09:19)
--- NOTE | 2017-10-06 08:51 | PDPROPOC ---
Sedation Plan of Care Sedation Plan of Care: vital signs stable, mental status noted, patient educated of risks, benefits, alternatives, patient can tolerate sedation ASA Classification: ASA 2 Planned drugs: fentanyl, midazolam Mallampati Score: Class 2 Mallampati Reference Image: Patient passed 3-3-2 rule?: Yes
--- NOTE | 2017-10-06 08:53 | PDGENHP ---
History & Physical Chief Complaint: LLE VARICOSITIES History of Present Illness: ROPEY VARICOSE VEINS Pertinent Past, Social, Family History: LABIAL CYST REMOVED; BILATERAL FT RECONSTRUCTION Relevant Physical Exam: POSTERIOR CALF. Cardiorespiratory Assessment: RRR, CTA
[2017-10-06] MEDS ORDERED: ONDANSETRON 4 MG/2 ML VIAL IVP PRN (10:35)
[2017-10-06] MEDS ORDERED: ONDANSETRON DISINTEGRATING 4 MG TAB PO PRN (10:35)
[2017-10-06] MEDS ORDERED: IBUPROFEN 200 MG TAB PO ONE (10:35)
[2017-10-06] MEDS ORDERED: HYDROCODONE/APAP 5/325 TAB PO PRN (10:35)
--- NOTE | 2017-10-06 10:41 | PDRADPN ---
Radiology Procedure Note Date of Procedure: 10/06/17 Radiologist: Radhika Munoz Anesthesia: IV Sedation Pre-op Diagnosis: LLE VARICOSITIES Post-op Diagnosis: SAME Indication: DVT Procedure: LASER, SCLEROTHERAPY, PHLEBECTOMY Finding(s): SEE REPORT Inf/Abcess present in the surg proc area at time of surgery?: No Complications: NONE
[2017-10-06] MEDS ORDERED: NS 1,000 ML IV SCH (10:45)
[2017-10-06 14:18] VITALS: BP 134/68
== END 2017-10-06 14:01 | disposition home or self-care (01) ==
LOC: FIMAGING 07:14
PROVIDERS: ATTEND Radiology Diagnostic Radiology
PROC: 065Q3ZZ Destruction of Left Saphenous Vein, Percutaneous Approach (ICD-10-PCS; principal; 2017-10-06 10:15)
DX: I83.92 Asymptomatic varicose veins of left lower extremity (principal)
CPT/HCPCS: J0690; J2250; J2310; J3010

== ENCOUNTER 2017-12-10 05:55 | Inpatient (IN) | payer OTHER ==
[2017-12-10] MEDS ORDERED: ROPIVACAINE 0.2% 80 MG, EPINEPHrine 0.2 MG, KETOROLAC TROMETHAMINE 30 MG in SYRINGE 0 ML IU ONE (06:00)
[2017-12-10] MEDS ORDERED: TRANEXAMIC ACID 3,000 MG in NS (SYRINGE) 50 ML IRR ONE (06:00)
[2017-12-10] MEDS ORDERED: ceFAZolin 2 GM/DEXTROSE 100 ML IV ONE (06:20)
[2017-12-10] MEDS ORDERED: FAMOTIDINE 20 MG TAB PO ONE (06:20)
[2017-12-10] MEDS ORDERED: ACETAMINOPHEN 325 MG TAB PO ONE (06:20)
[2017-12-10] MEDS ORDERED: DEXAMETHASONE 4 MG/ML VIAL IVP ONE (06:20)
--- NOTE | 2017-12-10 07:09 | PDHPUP ---
History & Physical Update H&P update statement: This history and physical update is based on an assessment of the patient which was completed after admission or registration (within 24 hours), but prior to the surgery/procedure. H&P update: H&P reviewed & patient examined, no change in patient's condition since H&P completed
[2017-12-10] MEDS ORDERED: TRANEXAMIC ACID 3,000 MG/50 ML BAG IRR ONE (07:12)
--- NOTE | 2017-12-10 07:24 | PDANEPAE ---
ANE History of Present Illness 66 year old female for total hip arthroplasty. ANE Past Medical History - Cardiovascular History Hx Hypertension: No Hx Arrhythmias: No Hx Chest Pain: No Hx Coronary Artery / Peripheral Vascular Disease: No Hx CHF / Valvular Disease: No Hx Palpitations: No - Pulmonary History Hx COPD: No Hx Asthma/Reactive Airway Disease: No Hx Recent Upper Respiratory Infection: No Hx Oxygen in Use at Home: Yes Hx Sleep Apnea: No Sleep Apnea Screening Result - Last Documented: Positive Pulmonary History Comment: Pulmonary embolism 03/2017 - Neurologic History Hx Cerebrovascular Accident: No Hx Seizures: No Hx Dementia: No Neurologic History Comment: "STROBING -LIKE STROBE LIGHT 2 YRS AGO"- NO REGULAR H/A'S. 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 - Endocrine History Hx Diabetes: No Hypothyroid: No Hyperthyroid: No Obesity: no - Renal History Hx Renal Disorders: No - Liver History Hx Hepatic Disorders: No - Neurological & Psychiatric Hx Hx Neurological and Psychiatric Disorders: No - Cancer History Hx Cancer: No - Congenital Disorder History Hx Congenital Disorders: No - GI History Hx Gastrointestinal Disorders: No - Other Health History Other Health History: OA-L HIP - Chronic Pain History Chronic Pain: No - Surgical History Prior Surgeries: Labia cyst removed-teenager. b/l foot reconstruction-12 years ago ANE Review of Systems Review of systems is: negative Review of Systems: - Exercise capacity Exercise capacity: >=4 METS METS (RN): 4 METS ANE Patient History - Allergies Allergies/Adverse Reactions: No Known Allergies Allergy (Verified 11/17/17 11:51) - Home Medications Home medications: home medication list seen and reviewed Home Medications: C/E/Zn/Cu/OM3/DHA/EPA/LUT/ZEAX [Preservision Areds 2 Softgel] 1 cap PO DAILY [Last Taken 2 Weeks Ago ~11/26/17] Cholecalciferol Vit D3 [Vitamin D3 (*)] 1,000 units PO DAILY 04/23/17 [Last Taken 2 Weeks Ago ~11/26/17] Ferrous Sulfate [Ferrous Sulf 325 MG (*)] 325 mg PO DAILY 04/23/17 [Last Taken 2 Weeks Ago ~11/26/17] Herbals/Supplements -Info Only 1 ea PO DAILY 04/23/17 [Last Taken 2 Weeks Ago ~ 11/26/17] Dixon-3 Fatty Acids [Fish Oil 1000 mg (*)] 1,000 mg PO DAILY 04/23/17 [Last Taken 2 Weeks Ago ~11/26/17] Rivaroxaban [Xarelto] 20 mg PO DAILY 10/06/17 [Last Taken 12/07/17 08:00] Ascorbic Acid [Vitamin C 500 mg (*)] 500 mg PO DAILY 11/10/17 [Last Taken 2 Weeks Ago ~11/26/17] - NPO status NPO Status: no food or drink >8 hours - Anes Hx Anes Hx: no prior problems - Smoking Hx Smoking Status: Never smoked Marijuana use: No - Alcohol Use Alcohol Use: Rarely - Family Anes Hx Family Anes Hx: neg - N/A Family Hx Anesthesia Complications: None ANE Labs/Vital Signs - Vital Signs Vital Signs: reviewed preoperatively; see RN documention for details Height: 167.64 cm Weight: 69.4 kg ANE Physical Exam - Airway Neck exam: FROM Mallampati Score: Class 2 Mouth exam: normal dental/mouth exam - Pulmonary Pulmonary: no respiratory distress - Cardiovascular Cardiovascular: regular rate and rhythym - ASA Status ASA Status: II ANE Anesthesia Plan Anesthesia Plan: GA w LMA (General as "back-up" only), MAC, spinal (Patient takes Xarelto for history of PE. Patient stopped Xarelto on Friday morning. Per NILO guidelines, Xarelto has been held for 72 hours, acceptable for placement of Neuraxial anesthetic. )
[2017-12-10] MEDS ORDERED: MIDAZOLAM 2 MG/2 ML VIAL IVP ONE (07:26)
[2017-12-10] MEDS ORDERED: LR 1,000 ML IV ONE (07:30)
[2017-12-10] MEDS ORDERED: PROPOFOL/EMULSION 500 MG/50 ML BOTTLE IV ONE ×2 (08:03→09:06)
[2017-12-10] MEDS ORDERED: fentaNYL 100 MCG/2 ML INJ ONE ×2 (08:52→10:05)
[2017-12-10] MEDS ORDERED: ROCURONIUM 50 MG/5 ML VIAL ONE (09:01)
[2017-12-10] MEDS ORDERED: SUGAMMADEX SODIUM 200 MG/2 ML VIAL IVP ONE (09:01)
[2017-12-10] MEDS ORDERED: DEXAMETHASONE 4 MG/ML VIAL ONE (09:01)
[2017-12-10] MEDS ORDERED: ONDANSETRON 4 MG/2 ML VIAL ONE (09:01)
[2017-12-10] MEDS ORDERED: PHENYLEPHRINE HCL 100 MCG/ML SYR IVP PRN (09:09)
[2017-12-10] MEDS ORDERED: HYDROmorphONE/DILAUDID 1 MG/ML INJ IVP PRN (09:09)
[2017-12-10] MEDS ORDERED: NALOXONE HCL 0.4 MG/ML INJ IVP PRN (09:09)
[2017-12-10] MEDS ORDERED: ONDANSETRON 4 MG/2 ML VIAL IVP PRN ×2 (09:09→09:56)
[2017-12-10] MEDS ORDERED: LR 500 ML IV PRN (09:09)
[2017-12-10] MEDS ORDERED: LABETALOL HCL 5 MG/ML 20 ML MDV IVP PRN (09:09)
[2017-12-10] MEDS ORDERED: DIAZEPAM 5 MG/ML 1 ML SYR IVP PRN (09:09)
[2017-12-10] MEDS ORDERED: DIPHENOXYLATE/ATROPINE LOMOTIL 1 TAB PO PRN (09:56)
[2017-12-10] MEDS ORDERED: oxyCODONE IR 5 MG TAB PO PRN (09:56)
[2017-12-10] MEDS ORDERED: LACTULOSE 20 GM/30 ML UDCUP PO PRN (09:56)
[2017-12-10] MEDS ORDERED: PROMETHAZINE HCL 25 MG SUPPR PR PRN (09:56)
[2017-12-10] MEDS ORDERED: TEMAZEPAM 15 MG CAP PO PRN (09:56)
[2017-12-10] MEDS ORDERED: BISACODYL 10 MG SUPP PR PRN (09:56)
[2017-12-10] MEDS ORDERED: PROMETHAZINE HCL 25 MG/ML INJ IVP PRN (09:56)
[2017-12-10] MEDS ORDERED: POLYETHYLENE GLYCOL 3350 17 GM PKT PO PRN (09:56)
[2017-12-10] MEDS ORDERED: ONDANSETRON DISINTEGRATING 4 MG TAB PO PRN (09:56)
[2017-12-10] MEDS ORDERED: METOCLOPRAMIDE 10 MG/2 ML VIAL IVP PRN (09:56)
[2017-12-10] MEDS ORDERED: MAGNESIUM HYDROXIDE 30 ML UDCUP PO PRN (09:56)
[2017-12-10] MEDS ORDERED: diphenhydrAMINE 25 MG CAP PO PRN (09:56)
--- NOTE | 2017-12-10 09:56 | POSTOPPROG ---
Post Op Note Date of Operation: 12/10/17 Surgeon: Marcellus Sloan [employer] Installer: estelle sloan Anesthesiologist: dr. segura Anesthesia: Spinal Pre-op Diagnosis: left hip OA Post-op Diagnosis: same Indication: left hip pain Procedure: LTHA Findings: severe hip OA Inf/Abcess present in the surg proc area at time of surgery?: No EBL: 100-500
[2017-12-10] MEDS ORDERED: LR 1,000 ML IV SCH (10:00)
[2017-12-10] MEDS: fentaNYL 100 MCG/2 ML INJ IVP PRN ×2 (10:07→10:17)
[2017-12-10] MEDS ORDERED: HYDROmorphONE/DILAUDID 1 MG/ML INJ ONE (10:25)
[2017-12-10] MEDS: ACETAMINOPHEN 325 MG TAB PO SCH ×3 (11:51→23:43)
[2017-12-10] MEDS: ceFAZolin 2 GM/DEXTROSE 100 ML IV SCH ×2 (16:45→23:44)
--- NOTE | 2017-12-10 16:52 | POSTANESTH ---
Post Anesthetic Evaluation Cardiovascular Status: Normal, Stable, Similar to Pre-Op Cond Respiratory Status: Normal, Stable, Similar to Pre-op Cond. Level of Consciousness/Mental Status: Can Participate in Eval, Alert and Oriented Pain Control: Adequate, Prn Tx Ordered Nausea/Vomiting Control: Adequate, Prn Tx Ordered Complications Possibly Related to Anesthesia: None Noted
--- NOTE | 2017-12-10 17:38 | GOP ---
[f rep st] OPERATIVE REPORT DATE OF OPERATION: 12/10/2017 SURGEON: Chelsea Sousa MD [employer] [facility] AGENT: NEENA House ANESTHESIA: Spinal. PREOPERATIVE DIAGNOSIS: Left hip osteoarthritis. POSTOPERATIVE DIAGNOSIS: Left hip osteoarthritis. PROCEDURE PERFORMED: Right total hip arthroplasty with x-ray. FINDINGS: ESTIMATED BLOOD LOSS: 200 cc. INDICATIONS: The patient has progressively worsening arthritis of the hip which has failed medical m anagement. The patient understands the treatment options including continued non-operative care and has selected surgical intervention. The patient has decided to undergo total hip arthroplasty via th e direct anterior approach, understanding the risks of the procedure including, but not limited to, n eurovascular injury, infection, persistent pain, component wear and loosening, deep venous thrombosis , pulmonary embolism, limb length inequality, hip instability (including dislocation), and intra-oper ative fractures. DESCRIPTION OF PROCEDURE: After proper identification of the patient including verification and jenise ing the surgical site, the patient was brought to the operating room and placed in the supine positio n. All bony prominences were well padded. Anesthesia was induced without complication and intraveno us prophylactic antibiotics were administered prior to skin incision. The operative leg was placed in the Trumpf Arch table extension and the well leg in a Yellofin leg ho lder. The patient was prepped and draped in the usual sterile fashion. The C-arm was draped for int ra-operative fluoroscopy to check acetabular position, femoral component position including leg lengt h and femoral offset. Attention was then drawn to surgical exposure of the hip. An incision was made with a #10 Bard Shelly r blade starting 3 cm lateral and 3 cm distal to the anterior superior iliac spine measuring 8-10 cm and coursing distally toward the greater trochanter. The skin and subcutaneous tissues were divided sharply down to the fascia larisa. The fascia larisa was incised in line with the skin incision exposing the underlying tensor fascia larisa muscle. The muscle was bluntly elevated from the fascia and the f irst extracapsular Cobra retractor was placed laterally at the junction of the superior femoral neck and greater trochanter. The lateral femoral circumflex vessels were identified, cauterized, and divi ded with the Aquamantys bipolar cautery. The deep investing fascia of the TFL was divided to allow p norma mobilization of the muscle preventing damage during the retraction. The reflected head of the rectus femoris muscle was elevated off the anterior hip capsule and a medial Cobra retractor was plac ed just proximal to the lesser trochanter. The anterior capsulotomy was made sharply from the superolateral acetabulum to the saddle junction of the superior femoral neck and greater trochanter, then coursing inferomedial towards the lesser troc hanter. The retractors were then placed in the intracapsular position for femoral neck osteotomy. C orresponding to pre-operative templating, the osteotomy was made with the oscillating saw carefully p rotecting the greater trochanter and soft tissues. The femoral head was removed from the acetabulum with a corkscrew and confirmed to be severely arthritic with exposed bone, deformity and osteophytes. Similar findings were confirmed in the acetabulum. The Arch table extension was then placed in 40 degrees external rotation. Attention was then drawn to the acetabular preparation. After placement of the anterior and posterio r Cobra retractors outside the labrum and intracapsular, the circumferential labrum was removed sharp ly. The foveal contents were then removed and hemostasis obtained with cautery. The first reamer selected was sized using the removed femoral head. Reaming began with medialization and then commenced in 2 mm increments at 45 degrees of abduction and 15 degrees of anteversion using fluoroscopic navigation. Reaming ceased 1 mm less than the definitive acetabular component and angle esponded to the pre-operative templating. The final acetabular component was inserted using fluorosc opy to achieve proper orientation yielding excellent purchase and stability in the acetabulum. The f inal acetabular liner was then placed and its seating confirmed. Attention was then turned to the femur. The Arch table extension was placed in extension and adducti on, delivering the osteotomized femoral neck into the wound. A 2-pronged femoral elevator was placed at the calcar and another at the tip of the greater trochanter. The posterolateral capsule was rele ased with cautery allowing mobilization of the femur lateral and anterior for preparation. The exter nal rotators were visualized and preserved. A curette and rongeur were used to open the starting poi nt for broaching. Serial broaching started with the #0 broach and ended with the broach that exhibit ed excellent fit in the proximal femur. A change in pitch during mallet strikes was accompanied by t he inability to advance the broach any further. The trial reduction was performed and fluoroscopic n avigation was utilized to check limb length. Adjustments were made to equalize limb length according ly. After the final trials were accepted they were removed and the wound was copiously lavaged. The femo ral component was seated to the same depth as the final broach and the femoral head was impacted onto the clean trunnion. The hip was then reduced for the final time and once more fluoroscopy was used to check that limb length equality was achieved. The wound was irrigated and closed in layers, the fascia larisa with 2-0 Quill, the subcutaneous tissue with 2-0 Quill, and the skin with Dermabond. Sterile dressings were applied. Final sharps and spon ge counts were accurate. The patient was then transferred to a hospital bed and brought to the [facility] room in stable condition. IMPLANTS: Accolade II size 7 at 127. Acetabular component Trident II, 56 mm. liner is a Trident X3 , 36 mm. The head is a Biolox Delta 36 mm, +5. /[id number]/MODL
[2017-12-10] MEDS: FAMOTIDINE 20 MG TAB PO SCH (20:26)
[2017-12-10] MEDS: SENNOSIDES/DOCUSATE SODIUM TAB PO SCH (20:27)
[2017-12-10] MEDS: CYCLOBENZAPRINE 10 MG TAB PO PRN (20:28)
[2017-12-11] MEDS: ACETAMINOPHEN 325 MG TAB PO SCH (05:56)
[2017-12-11 07:18] VITALS: BP 104/56
[2017-12-11] MEDS: SENNOSIDES/DOCUSATE SODIUM TAB PO SCH (07:50)
[2017-12-11] MEDS: CYCLOBENZAPRINE 10 MG TAB PO PRN (07:51)
[2017-12-11] MEDS: FAMOTIDINE 20 MG TAB PO SCH (07:51)
--- NOTE | 2017-12-11 08:49 | SOAPPROG ---
SOAP Progress Note Assessment/Plan: Assessment: Patient is doing well POD 1 s/p L ZHEN Pain management: pain is well controlled on oral pain meds. VTE ppx: recommend resuming xarelto, cont ZEESHAN and SCDs Anemia: level is expected initially postop. Asymptomatic. Continue to monitor D/c planning: d/c to home today pending release from PT Plan: 12/11/17 08:48 Subjective: jesus is doing well, denies SOB, chest pain and N/V. Objective: Vital Signs Temp Pulse Resp BP Pulse Ox 36.9 C 64 16 104/56 L 96 12/11/17 07:17 12/11/17 07:17 12/11/17 07:17 12/11/17 07:17 12/11/17 07:17 Laboratory Results 12/11/17 04:55 12/10/17 12/11/17 12/12/17 05:59 05:59 05:59 Intake Total 3022 450 Output Total 2775 Balance 247 450 LLE; incision dressing is clean and dry, NVI, +pf/df ICD10 Worksheet Patient Problems: Problems Problem Status Onset Primary localized osteoarthritis of left hip Acute Dyspnea Acute Hypoxia Acute Pulmonary embolism Acute Varicose veins of left leg with edema Acute
[2017-12-11] MEDS ORDERED: RIVAROXABAN 20 MG TAB PO SCH (09:00)
--- NOTE | 2017-12-11 10:44 | PDMN ---
Medical Necessity Medical necessity: IP surgery per [facility] cpt [id number] R ZHEN
--- NOTE | 2017-12-11 15:35 | GDS ---
[f rep st] DISCHARGE SUMMARY ADMISSION DIAGNOSIS: Left hip osteoarthritis. DISCHARGE DIAGNOSIS: Left hip osteoarthritis. PROCEDURE: Left total hip arthroplasty. VTE PROPHYLAXIS: Recommend Xarelto. BRIEF DESCRIPTION OF HOSPITAL STAY: Patient was admitted for an elective joint arthroplasty. The pa clay tolerated the procedure well and has passed physical therapy. The patient was given appropriat e antibiotic prophylaxis and venous thromboembolism prophylaxis. The patient's pain was well control led on oral pain medication, patient was holding down food, and had urinated. Decision was made to d ischarge the patient. The patient was given post-operative prescriptions pre-operatively. PLAN: Follow up as scheduled in Dr. Sousa's office December 29 at 11 a.m. /[id number]/MODL
== END 2017-12-11 11:28 | disposition home or self-care (01) | DRG 470 ==
LOC: F3N 05:55
PROVIDERS: ADMIT Orthopaedic Surgery; ATTEND Orthopaedic Surgery
PROC: 0SRB04Z Replacement of Left Hip Joint with Ceramic on Polyethylene Synthetic Substitute, Open Approach (ICD-10-PCS; principal; 2017-12-10 08:15)
DX: M16.12 Unilateral primary osteoarthritis, left hip (principal); G47.30 Sleep apnea, unspecified; Z86.711 Personal history of pulmonary embolism
CPT/HCPCS: 97116-GP; 97161-GP; G8978-GP-CK; G8979-GP-CI; G8979-GP-CJ; G8980-GP-CI; J0171; J0690; J1100; J1170; J1885; J2250; J2405; J2704; J2795; J3010

== ENCOUNTER → 2018-01-22 | Outpatient (CLI) | payer OTHER | LOC: FIMAGING 09:56 | PROVIDERS: ATTEND Physician Assistant | DX: M51.26 Other intervertebral disc displacement, lumbar region (principal); M51.27 Other intervertebral disc displacement, lumbosacral region; M48.061 Spinal stenosis, lumbar region without neurogenic claudication; M48.07 Spinal stenosis, lumbosacral region; M25.562 Pain in left knee ==

== ENCOUNTER → 2018-03-26 | Outpatient (CLI) | payer OTHER | LOC: FIMAGING 14:50 | PROVIDERS: ATTEND Internal Medicine | DX: Z12.31 Encounter for screening mammogram for malignant neoplasm of breast (principal); Z80.3 Family history of malignant neoplasm of breast ==

== ENCOUNTER → 2018-09-14 | Outpatient (CLI) | payer OTHER | LOC: BMCIMAGING 15:01 | PROVIDERS: ATTEND Internal Medicine | DX: Z13.820 Encounter for screening for osteoporosis (principal); M81.0 Age-related osteoporosis without current pathological fracture; Z79.01 Long term (current) use of anticoagulants ==